=== PATIENT | female | born 1975 | race Caucasian/White ===

== ENCOUNTER 2018-01-19 15:44 | Emergency (ER) | payer OTHER, SELFPAY ==
[2018-01-19 15:56] VITALS: BP 109/72; PULSE 86; RESP 18; TEMP 36.8; O2SAT 98
[2018-01-19 16:15] LABS: Appearance Urine UA CLOUDY; Bilirubin Urine UA NEGATIVE (NEGATIVE); Color Urine UA YELLOW; Glucose Urine UA NEGATIVE (Normal); Ketones Urine UA NEGATIVE (NEGATIVE); Leukocyte Esterase Urine UA TRACE (NEGATIVE); Nitrite Urine UA POSITIVE (Negative); Occult Blood Urine UA 3+ (Negative); Protein Urine UA 2+ (Negative); Urobilinogen Urine UA 0.2 E.U./dL (0.2)
[2018-01-19 16:26] LABS: Bacteria Urine Many (>30); Culture Indicated Urine Specimen Cultured; RBC Urine 30-100/HPF (0-5/HPF); Squamous Epithelial Cell Urine 1-5 /HPF; WBC Urine 10-30/HPF (0-5/HPF)
--- NOTE | 2018-01-19 16:29 | ED.FEMALEGU ---
HPI - Female Genitourinary <Galina Faustin PA-C - Last Filed: 01/19/18 17:30> General Chief complaint: Urogenital-Female Stated complaint: STATES BLADDER INFECTION Time Seen by Provider: 01/19/18 16:20 Source: patient Mode of arrival: ambulatory Limitations: no limitations History of Present Illness HPI Narrative: This 42-year-old complains of onset of urinary burning, frequency, and urgency last night. She states this feels typical of her previous UTIs. She denies any new flank pain (has some chronic back pain that she thinks is related to work, unchanged today), denies nausea, vomiting, fever, or other new symptoms. She denies hematuria. Denies possibility of due to previous tubal ligation Related Data Home Medications Medication Instructions Recorded Confirmed [amberen] #0 03/16/17 ferrous gluconate 236 mg PO #0 03/16/17 Previous Rx's Medication Instructions Recorded fluticasone 1 spray INTRANASAL BID #16 gm 09/13/17 loratadine [Claritin Liqui-Gel] 10 mg PO QDAY #30 sgl 09/13/17 phenazopyridine [Pyridium] 200 mg PO Q8H PRN #6 tab 01/19/18 acyclovir 400 mg tablet 400 mg PO TID #15 tab 02/15/18 Allergies Allergy/AdvReac Type Severity Reaction Status Date / Time hydrocodone [HYDROCODONE] Allergy Severe Unverified 11/25/17 11:49 codeine [CODEINE] Allergy Intermediate RASH Unverified 11/25/17 11:49 Review of Systems <Galina Faustin PA-C - Last Filed: 01/19/18 17:30> Review of Systems All systems reviewed & are unremarkable except as noted in HPI and below Exam <Galina Faustin PA-C - Last Filed: 01/19/18 17:30> Narrative Exam Narrative: GENERAL APPEARANCE: Patient sitting comfortably, in no distress. LUNGS: Clear to auscultation bilaterally. HEART: Rate and rhythm regular without murmur, normal S1 and S2, no S3 or S4. ABDOMEN: Soft, NT, ND, +BS x 4 quadrants, no CVAT. Initial Vital Signs Initial Vital Signs: Vital Signs Temperature 98.3 F 01/19/18 15:56 Pulse Rate 86 01/19/18 15:56 Respiratory Rate 18 06/05/18 15:56 Blood Pressure 109/72 01/19/18 15:56 Pulse Oximetry 98 01/19/18 15:56 <Sandeep Glass MD - Last Filed: 03/05/18 08:14> Initial Vital Signs Initial Vital Signs: Vital Signs Temperature 98.3 F 01/19/18 15:56 Pulse Rate 86 01/19/18 15:56 Respiratory Rate 18 01/19/18 15:56 Blood Pressure 109/72 01/19/18 15:56 Pulse Oximetry 98 01/19/18 15:56 Course <Galina Faustin PA-C - Last Filed: 01/19/18 17:30> Orders Ordered: ED Orders 01/19/18 16:00 UA Complete [Urinalysis and Microscopic] Stat Urine Culture Stat Vital Signs - 8 hr 01/19/18 15:56 01/19/18 17:17 Temperature 98.3 F Pulse Rate 86 78 Respiratory Rate 18 Blood Pressure 109/72 Blood Pressure [Left Arm] 98/73 Pulse Oximetry 98 100 <Sandeep Glass MD - Last Filed: 03/05/18 08:14> Orders Ordered: ED Orders 01/19/18 16:00 UA Complete [Urinalysis and Microscopic] Stat Urine Culture Stat Vital Signs - 8 hr 01/19/18 15:56 01/19/18 17:17 Temperature 98.3 F Pulse Rate 86 78 Respiratory Rate 18 Blood Pressure 109/72 Blood Pressure [Left Arm] 98/73 Pulse Oximetry 98 100 MDM - Female Genitourinary <DOLLY Amaral Last Filed: 01/19/18 17:30> Lab Data Lab Results 01/19/18 Range/Units 16:00 Urine Color Yellow Urine Appearance Cloudy Urine pH 7.0 (4.5-8.0) Ur Specific [place] 1.020 (1.000-1.035) Urine Protein 2+ H (Negative) Urine Glucose (UA) Negative (Normal) g/dL Urine Ketones Negative (NEGATIVE) Urine Occult Blood 3+ H (Negative) Urine Nitrate Positive H (Negative) Urine Bilirubin Negative (NEGATIVE) Urine Urobilinogen 0.2 (0.2) E.U./dL Ur Leukocyte Esterase Trace H (NEGATIVE) Urine RBC 30-100/hpf H (0-5/HPF) Urine WBC 10-30/hpf H (0-5/HPF) Ur Squamous Epith Cells 1-5 /hpf Urine Bacteria Many (>30) H (None) Ur Culture Indicated? Specimen cultured Micro UA Comment Not Reportable <Sandeep Glass MD - Last Filed: 03/05/18 08:14> Lab Data Lab Results 01/19/18 Range/Units 16:00 Urine Color Yellow Urine Appearance Cloudy Urine pH 7.0 (4.5-8.0) Ur Specific [place] 1.020 (1.000-1.035) Urine Protein 2+ H (Negative) Urine Glucose (UA) Negative (Normal) g/dL Urine Ketones Negative (NEGATIVE) Urine Occult Blood 3+ H (Negative) Urine Nitrate Positive H (Negative) Urine Bilirubin Negative (NEGATIVE) Urine Urobilinogen 0.2 (0.2) E.U./dL Ur Leukocyte Esterase Trace H (NEGATIVE) Urine RBC 30-100/hpf H (0-5/HPF) Urine WBC 10-30/hpf H (0-5/HPF) Ur Squamous Epith Cells 1-5 /hpf Urine Bacteria Many (>30) H (None) Ur Culture Indicated? Specimen cultured Micro UA Comment Not Reportable Discharge Plan Departure Patient Disposition: Home, Self-Care Clinical Impression: UTI (urinary tract infection) Discharge Date/Time: 01/19/18 17:19 Interventions: ED Discharge Assessment Last Done: 01/19/18 17:14 Instructions: DI for Urinary Tract Infection (UTI) Activity Restrictions/Additional Instructions: Return if you have any new or acutely worsening symptoms as we talked about while cultures are pending (such as fever, nausea, vomiting, or new back pain). Follow up with your PCP if not better in a few days. Your prescriptions have been electronically sent to the pharmacy. Please picked them up and take the 1st doses right away Prescriptions: New phenazopyridine [Pyridium] 200 mg tablet 200 mg PO Q8H PRN (Reason: urinary pain) Qty: 6 RF: 0 No Action ferrous gluconate 236 MG tablet 236 mg PO Qty: 0 RF: 0 [amberen] Qty: 0 RF: 0 fluticasone 16 GM spray,suspension 1 spray Intranasal BID Qty: 16 RF: 0 loratadine [Claritin Liqui-Gel] 10 MG capsule 10 mg PO QDAY Qty: 30 RF: 0 acyclovir 400 mg tablet 400 mg PO TID Qty: 15 RF: 0 Referrals: Laura Solis DO [Primary Care Provider] - <Sandeep Glass MD - Last Filed: 03/05/18 08:14> Sign Out Provider Sign Out Attestation: The PA/[employer] functioned independently for the care of this pt, I was available, but not asked to participate in care. I am unable to determine appropriateness of management without personally examining the pt.
[2018-01-19 17:17] VITALS: BP 98/73; PULSE 78; O2SAT 100
== END 2018-01-19 17:19 | disposition home or self-care (01) ==
PROVIDERS: Emergency Medicine; Emergency Provider Internal Medicine; Family Provider Family Medicine; PCP Family Medicine
DX: N39.0 Urinary tract infection, site not specified (principal)
CPT/HCPCS: 81001; 87077; 87086; 87186; 99283

== ENCOUNTER → 2019-01-31 09:55 | Outpatient (CLI) | payer OTHER, SELFPAY ==
[2019-01-31 12:01] LABS: HIV 1 and 2 Antibody NEGATIVE (NEGATIVE); Hep C Virus Ab w/Reflex Quant NEGATIVE s/c (NEGATIVE)
[2019-02-02 13:24] LABS: HSV 1 IgM Screen Negative (Negative); HSV 2 IgM Screen Negative (Negative)
[2019-02-02 20:16] LABS: RPR Screen Nonreactive (Nonreactive)
== END ==
LOC: LAB 09:57
PROVIDERS: Family Provider Family Medicine; PCP Family Medicine
DX: Z71.1 Person with feared health complaint in whom no diagnosis is made (principal)
CPT/HCPCS: 36415; 86592; 86695; 86696; 86703; 86803

== ENCOUNTER 2019-12-09 22:03 | Emergency (ER) | payer OTHER, MEDICAID, SELFPAY ==
--- NOTE | 2019-12-09 22:25 | ED.GENADULT ---
HPI - General Adult General Chief complaint: Back Pain/Injury Stated complaint: lower back pain, burning sensation right leg Time Seen by Provider: 12/09/19 22:08 Source: patient Mode of arrival: Ambulatory Limitations: no limitations History of Present Illness HPI narrative: 44-year-old female here for evaluation of right-sided lower back pain with radiation down into her right leg. She states that it feels like a burning sensation down into the front of her right leg. States this has happened to her in the past. Was several weeks ago. She states she received a couple shots of pain medication an outside facility and was discharged home. Has not followed up since then. He states that the pain that brought her in today started within the past 24 hours. No fevers. No specific trauma. The same pain that she had several weeks ago. No urinary symptoms. No bowel symptoms. Not worse with palpation. Is worse with movement. Has not taken anything today for symptoms. Related Data Home Medications Medication Instructions Recorded Confirmed [amberen] #0 03/16/17 01/31/19 ferrous gluconate 236 mg PO #0 03/16/17 01/31/19 Previous Rx's Medication Instructions Recorded loratadine [Claritin Liqui-Gel] 10 mg PO QDAY #30 sgl 09/13/17 acyclovir 400 mg tablet 400 mg PO 5XD #25 tab 12/09/19 cyclobenzaprine 10 mg PO TID PRN #12 tab 12/09/19 meloxicam [Mobic] 7.5 mg PO DAILY #30 tab 12/09/19 prednisone 20 mg PO DAILY 3 Days #3 tab 12/09/19 tramadol [Ultram] 50 mg PO Q8H PRN #7 tab 12/09/19 Allergies Allergy/AdvReac Type Severity Reaction Status Date / Time banana Allergy Severe Swelling Verified 12/09/19 22:35 of Lip/Tongue/Throat grapefruit Allergy Severe Swelling Verified 12/09/19 22:35 of Lip/Tongue/Throat hydrocodone [HYDROCODONE] Allergy Severe Rash Unverified 12/09/19 22:35 shellfish derived Allergy Severe Swelling Verified 12/09/19 22:35 of Lip/Tongue/Throat codeine [CODEINE] Allergy Intermediate RASH Unverified 11/25/17 11:49 Review of Systems Constitutional Constitutional: Denies fever(s) and Denies headache(s) ENT Ears, Nose, Mouth, and Throat: Denies headache(s) Cardiovascular Cardiovascular: Denies chest pain and Denies dyspnea Respiratory Respiratory: Denies dyspnea Gastrointestinal Gastrointestinal: Denies abdominal pain Musculoskeletal Musculoskeletal: Reports back pain, Denies muscle weakness and Reports radiating pain into limb Integumentary/Breasts Skin/Breast: Denies lesions and Denies rash Neurologic Neurologic: Denies headache(s) Comments: Burning pain radiating down to her right leg Hematologic/Lymphatic Hematologic/Lymphatic: Denies easy bleeding and Denies easy bruising Patient History Medical History Herpes (Acute) Surgical History (Updated 01/31/19 @ 09:52 by Eloy Lind MD) Previous section (Acute) Status post tubal ligation (10/13/14) Family History (Updated 08/20/16 @ 00:00 by Conversion Provider) Father Age: 76 Heart disease Hypertension High cholesterol Mother Age: 69 Hypertension High cholesterol Social History Smoking Status: Never smoker Smoking Status: Current every day smoker alcohol intake frequency: a few times a week Substance Use Type: does not use Exam Initial Vital Signs Initial Vital Signs: Vital Signs Pulse Rate 98 H 12/09/19 22:26 Respiratory Rate 16 12/09/19 22:26 Blood Pressure 119/82 12/09/19 22:26 Pulse Oximetry 98 12/09/19 22:26 Const General: cooperative and healthy appearing Limitations: mental status not altered Resp Effort & Inspection: normal respiratory effort Back/Spine/Pelvis Thoracic/Lumbar Spine: paraspinal tenderness and No lumbar spinal tenderness Skin Lesions: no lesions Rashes: no rashes Neuro General: awake Cognition: normal cognition Gait: normal gait Motor: muscle tone normal throughout Sensory Exam: no sensory deficits noted Extrem General: normal to inspection, capillary refill normal and No edema Psych Appearance: grossly normal and well kempt Course Orders Ordered: Discontinued Medications Ketorolac Tromethamine (Toradol) 30 mg IM NOW ONE Stop: 12/09/19 22:42 Last Admin: 12/09/19 22:55 Dose: 30 mg Documented by: PHUONG Vital Signs Vital signs: Vital Signs - 8 hr 12/09/19 22:26 12/09/19 23:21 Pulse Rate 98 H 82 Respiratory Rate 16 14 Blood Pressure 119/82 119/82 Pulse Oximetry 98 100 Medical Decision Making MDM Narrative Medical decision making narrative: Feel her symptoms today consistent with musculoskeletal back pain. She does have radiculopathy down to her right leg. I do have low suspicion for acute surgical issues to include cauda equina. I feel we could hold on radiologic studies. Did discuss this with the patient that her symptoms would get better but it will probably take quite a bit of time. We did discuss use of anti-inflammatories. Informed her that she should contact her primary doctor about further workup to include physical therapy and or other radiologic studies if needed or referrals to see Orthopedics. Was given Toradol here in the ER. Prescriptions were electronically transmitted to the pharmacy of her choice. She was given return precautions. She expressed understanding and agreement. Discharge Plan Departure Patient Disposition: Home Clinical Impression: Low back pain radiating to right leg Discharge Date/Time: 12/09/19 23:23 Instructions: Low Back Pain (Alternative Therapy), DI for Back Pain With Sciatica, Exercise May Reduce Risk of Low Back Pain Activity Restrictions/Additional Instructions: Take the medications as directed. I do recommend that you stay as active as possible. Recommend you contact your primary provider for follow-up to discuss further workup. Return to the emergency department for any new symptoms. Your prescriptions were electronically transmitted to [facility] Prescriptions: New meloxicam [Mobic] 7.5 mg tablet 7.5 mg PO DAILY Qty: 30 RF: 0 prednisone 20 mg tablet 20 mg PO DAILY 3 Days Qty: 3 RF: 0 cyclobenzaprine 10 mg tablet 10 mg PO TID PRN (Reason: muscle spasm) Qty: 12 RF: 0 tramadol [Ultram] 50 mg tablet 50 mg PO Q8H PRN (Reason: pain) Qty: 7 RF: 0 No Action ferrous gluconate 236 MG tablet 236 mg PO Qty: 0 RF: 0 [amberen] Qty: 0 RF: 0 loratadine [Claritin Liqui-Gel] 10 MG capsule 10 mg PO QDAY Qty: 30 RF: 0 acyclovir 400 mg tablet 400 mg PO 5XD Qty: 25 RF: 2 Referrals: Laura Solis DO [Primary Care Provider] -
[2019-12-09 22:26] VITALS: BP 119/82; PULSE 98; RESP 16; O2SAT 98; BMI 25.2
[2019-12-09] MEDS: KETOROLAC 60 MG/2 ML VIAL 30 MG IM (22:55)
[2019-12-09 23:21] VITALS: BP 119/82; PULSE 82; RESP 14; O2SAT 100
== END 2019-12-09 23:23 | disposition home or self-care (01) ==
PROVIDERS: Emergency Provider Emergency Medicine; Family Provider Family Medicine; PCP Family Medicine
DX: M54.5 Low back pain (principal)
CPT/HCPCS: 96372; 99283; J1885

== ENCOUNTER → 2020-03-20 10:54 | Outpatient (CLI) | payer OTHER, MEDICAID, SELFPAY ==
[2020-03-20 12:55] LABS: Estradiol, Total 17.2 pg/mL
== END ==
PROVIDERS: Family Provider Family Medicine; PCP Family Medicine
DX: N91.1 Secondary amenorrhea (principal)
CPT/HCPCS: 36415; 82670; 83001

== ENCOUNTER 2020-05-18 23:54 | Emergency (ER) | payer OTHER, MEDICAID, SELFPAY ==
[2020-05-19 00:10] VITALS: BP 112/72; PULSE 77; RESP 16; TEMP 36.7; O2SAT 99; BMI 25.8
--- NOTE | 2020-05-19 00:10 | ED_ITS ---
HPI - Female Genitourinary General Chief complaint: Urogenital-Female Stated complaint: Vaginal bleeding, burning, smell, cramps Time Seen by Provider: 05/19/20 00:00 Source: patient Mode of arrival: Ambulatory Limitations: no limitations History of Present Illness HPI Narrative: 45F nonsmoker postmenopausal female with noncontributory medical history presents with a chief complaint of 2 days of increasing vaginal bleeding through a pad every few hours along with suprapubic cramping vaginal burning and foul-smelling discharge. She denies any fever chills. She is not dizzy nor weak or lightheaded. She has not been sexually active in over 2 months and denies any new partners. 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 She had been put on hormone replacement but developed some vaginal spotting in early March and was subsequently taken off. MD Complaint: dysuria, vaginal bleeding, vaginal discharge, pelvic pain and possible STD Onset (ago): day(s) Location: suprapubic Severity: moderate Quality: Aching and Burning Duration: constant Relieving factors: none Exacerbating factors: movement Urinary symptoms: Dysuria and Foul Smelling Urine Sexual activity: No Patient : No Related Data Home Medications Medication Instructions Recorded Confirmed [amberen] #0 03/16/17 03/20/20 ferrous gluconate 236 mg PO #0 03/16/17 03/20/20 Previous Rx's Medication Instructions Recorded loratadine [Claritin Liqui-Gel] 10 mg PO QDAY #30 sgl 09/13/17 cyclobenzaprine 10 mg PO TID PRN #12 tab 12/09/19 tramadol [Ultram] 50 mg PO Q8H PRN #7 tab 12/09/19 acyclovir 400 mg tablet 400 mg PO 5XD #25 tab 01/30/20 estradiol-norethindrone acet 1 1 tab PO DAILY #84 tab 03/22/20 mg-0.5 mg tablet ketorolac 10 mg PO Q6H PRN #14 tab 05/19/20 Allergies Allergy/AdvReac Type Severity Reaction Status Date / Time banana Allergy Severe Swelling Verified 03/20/20 10:27 of Lip/Tongue/Throat grapefruit Allergy Severe Swelling Verified 08/04/20 10:27 of Lip/Tongue/Throat hydrocodone [HYDROCODONE] Allergy Severe Rash Verified 03/20/20 10:27 shellfish derived Allergy Severe Swelling Verified 03/20/20 10:27 of Lip/Tongue/Throat codeine [CODEINE] Allergy Intermediate RASH Verified 03/20/20 10:27 Review of Systems Constitutional Constitutional: Denies chills, Denies fatigue, Denies fever(s), Denies frequent falls, Denies lethargy and Denies weakness Eyes Eyes: Denies change in vision, Denies eye discharge, Denies irritation and Denies loss of vision ENT Ears, Nose, Mouth, and Throat: Denies change in voice, Denies dizziness, Denies neck pain, Denies sore throat and Denies throat swelling Cardiovascular Cardiovascular: Denies chest pain, Denies irregular heart rhythm, Denies lightheadedness, Denies palpitations, Denies dyspnea, Denies dyspnea on exertion and Denies orthopnea Respiratory Respiratory: Denies cough, Denies dyspnea, Denies dyspnea on exertion and Denies wheezing Gastrointestinal Gastrointestinal: Denies abdominal pain, Denies change in bowel habits, Denies diarrhea, Denies nausea and Denies vomiting Genitourinary Genitourinary: Reports hematuria Genitourinary: Reports abnormal vaginal bleeding, Reports hematuria, Reports vaginal discharge and Reports vaginal odor Musculoskeletal Musculoskeletal: Denies neck pain and Denies numbness Integumentary/Breasts Skin/Breast: Denies pruritus, Denies erythema, Denies rash and Denies wounds Neurologic Neurologic: Denies behavioral changes, Denies confusion, Denies dizziness, Denies frequent falls, Denies loss of vision, Denies numbness and Denies weakness Psychiatric Psychiatric: Denies anxiety, Denies behavioral changes, Denies confusion, Denies depression, Denies homicidal ideation and Denies suicidal ideation Endocrine Endocrine: Denies fatigue, Denies flushing and Denies palpitations Hematologic/Lymphatic Hematologic/Lymphatic: Denies easy bruising Allergic/Immunologic Allergic/Immunologic: Denies urticaria, Denies throat swelling and Denies wheezing Patient History Medical History Herpes (Acute) Surgical History Previous section (Acute) Status post tubal ligation (10/13/14) Family History Father Age: 76 Heart disease Hypertension High cholesterol Mother Age: 69 Hypertension High cholesterol tobacco type: cigarettes and vaping alcohol intake frequency: a few times a week Substance Use Type: marijuana Exam Narrative Exam Narrative: GENERAL: [45] year old patient appears stated age. Well- nourished, well-developed patient, in mild distress. HEAD: Atraumatic. Normocephalic. EYES: Pupils equal round and reactive. Extraocular motions intact. No scleral icterus. No injection or drainage. ENT: Nose without bleeding, purulent drainage. Throat without erythema, tonsillar hypertrophy or exudate. Airway patent. NECK: Trachea midline. Non tender CARDIOVASCULAR: Regular rate and rhythm without murmurs, gallops, or rubs. RESPIRATORY: Clear to auscultation. Breath sounds equal bilaterally. No wheezes, rales, or rhonchi. GASTROINTESTINAL: Abdomen soft, non-tender, nondistended. PELVIC: minimal dark bleeding from closed cervix without tenderness. EXTREMITIES: No edema or joint tenderness. BACK: Nontender without deformity or crepitance. No flank tenderness. NEURO: AOx3. SKIN: No rash or erythema of visible areas Initial Vital Signs Initial Vital Signs: Vital Signs Temperature 98.0 F 05/19/20 00:10 Pulse Rate 77 05/19/20 00:10 Respiratory Rate 16 05/19/20 00:10 Blood Pressure 112/72 05/19/20 00:10 Pulse Oximetry 99 05/19/20 00:10 Course Orders Ordered: ED Orders 05/19/20 00:15 Urinalysis and Microscopic Stat 05/19/20 00:54 Chlamydia Gonorrhea PCR -URINE Stat 05/19/20 01:05 Genital Culture Stat Wet Prep Tric BV Geni Stat Discontinued Medications Ketorolac Tromethamine (Toradol) 60 mg IM NOW ONE Stop: 05/19/20 01:07 Last Admin: 05/19/20 01:11 Dose: 60 mg Documented by: CARIN Consultations Consultation #1: discussion with Dr. Solis. She is in agreement with plan for patient to follow up and received US in office. No current need for medroxyprogesterone. Vital Signs Vital signs: Vital Signs - 8 hr 05/19/20 00:10 Temperature 98.0 F Pulse Rate 77 Respiratory Rate 16 Blood Pressure 112/72 Pulse Oximetry 99 MDM - Female Genitourinary Lab Data Labs: Lab Results 05/19/20 Range/Units 00:15 Urine Color Red Urine Appearance Sl cloudy Urine pH 5.5 (4.5-8.0) Ur Specific [place] 1.025 (1.000-1.035) Urine Protein 2+ H (Negative) Urine Glucose (UA) Negative (Negative) g/dL Urine Ketones Trace H (NEGATIVE) Urine Occult Blood 3+ H (Negative) Urine Nitrate Negative (Negative) Urine Bilirubin Negative (NEGATIVE) Urine Urobilinogen 0.2 (0.2) E.U./dL Ur Leukocyte Esterase Trace H (NEGATIVE) Urine RBC 30-100/hpf H (0-5/HPF) Urine WBC 1-5/hpf (0-5/HPF) Ur Squamous Epith Cells 5-10 /hpf H (0-5/HPF) Calcium Oxalate Crystal Occasional H Urine Bacteria Moderate (10-30) H (None) Urine Mucus 2+ H (Negative) Ur Culture Indicated? Cult not indicated Point of Care Testing Test Results Negative Discharge Plan Departure Patient Disposition: Home Clinical Impression: Abnormal vaginal bleeding Discharge Date/Time: 05/19/20 01:25 Instructions: DI for Vaginal Bleeding Activity Restrictions/Additional Instructions: *You have been diagnosed with [abnormal vaginal bleeding and pelvic cramping] *What to do: *Take medications as directed: Electronically transmitted to [facility] *Follow up with your primary care provider in 2-3 days, call for an appointment. Let them know you were seen in the Emergency Department and that we ask that you be seen in follow up *Return to ER if you should have any new, worsening or concerning symptoms, such as [fever greater than 101, increased pain, increased bleeding, saturating greater than 1 pad per hour for multiple hours] Prescriptions: New ketorolac 10 mg tablet 10 mg PO Q6H PRN (Reason: pain) Qty: 14 RF: 0 No Action ferrous gluconate 236 MG tablet 236 mg PO Qty: 0 RF: 0 [amberen] Qty: 0 RF: 0 loratadine [Claritin Liqui-Gel] 10 MG capsule 10 mg PO QDAY Qty: 30 RF: 0 acyclovir 400 mg tablet 400 mg PO 5XD Qty: 25 RF: 2 estradiol-norethindrone acet 1-0.5 mg tablet 1 tab PO DAILY Qty: 84 RF: 3 cyclobenzaprine 10 mg tablet 10 mg PO TID PRN (Reason: muscle spasm) Qty: 12 RF: 0 tramadol [Ultram] 50 mg tablet 50 mg PO Q8H PRN (Reason: pain) Qty: 7 RF: 0 Referrals: Eloy Lind MD [Physician] - Laura Solis DO [Family Provider] -
[2020-05-19 00:27] LABS: Appearance Urine UA SL CLOUDY; Bilirubin Urine UA NEGATIVE (NEGATIVE); Color Urine UA RED; Glucose Urine UA NEGATIVE (Negative); Ketones Urine UA TRACE (NEGATIVE); Leukocyte Esterase Urine UA TRACE (NEGATIVE); Nitrite Urine UA NEGATIVE (Negative); Occult Blood Urine UA 3+ (Negative); Protein Urine UA 2+ (Negative); Specific Gravity Urine UA 1.025 (1.000-1.035); Urobilinogen Urine UA 0.2 E.U./dL (0.2)
[2020-05-19 00:32] LABS: pH Urine UA 5.5 (4.5-8.0)
[2020-05-19 00:33] LABS: RBC Urine 30-100/HPF (0-5/HPF)
[2020-05-19 00:34] LABS: WBC Urine 1-5/HPF (0-5/HPF)
[2020-05-19 00:35] LABS: Bacteria Urine Moderate (10-30); Calcium Oxalate Crystals Urine Occasional; Mucus Urine 2+ (Negative)
[2020-05-19 00:36] LABS: Squamous Epithelial Cell Urine 5-10 /HPF (0-5/HPF)
[2020-05-19 00:37] LABS: Culture Indicated Urine Cult Not Indicated
--- NOTE | 2020-05-19 01:07 | PC.NURSE ---
Chaperoned Dr. Turpin for pelvic exam.
[2020-05-19] MEDS: KETOROLAC 60 MG/2 ML VIAL IM (01:11)
== END 2020-05-19 01:25 | disposition home or self-care (01) ==
PROVIDERS: Emergency Provider Emergency Medicine; Family Provider Family Medicine
DX: N93.9 Abnormal uterine and vaginal bleeding, unspecified (principal); R10.2 Pelvic and perineal pain; R30.0 Dysuria; R31.9 Hematuria, unspecified
CPT/HCPCS: 81001; 81025; 87070; 87077; 87205; 87210; 87252; 87491; 87591; 96372; 99283; 99284; J1885

== ENCOUNTER → 2021-04-23 12:38 | Outpatient (CLI) | payer OTHER, MEDICAID, SELFPAY ==
--- NOTE | 2021-04-23 12:40 | DI.US.S_ITS ---
PROCEDURE: US PELVIC COMPLETE INDICATIONS: PMB TECHNIQUE: Real-time scanning was performed of the pelvic organs, with image documentation. Additional endovaginal scanning was necessary due to incomplete visualization of the adnexal and endometrial structures by transabdominal scanning. COMPARISON: None. FINDINGS: Uterus: Uterus is normal in size at 8.2 x 3.4 x 4.3 cm. The endometrium measures 1.5 mm in combined thickness. Small echogenic foci are noted adjacent to the endometrium. Ovaries: Right ovary measures 2.1 x 0.9 x 1.4 cm. Left ovary measures 2.2 x 0.8 x 1.2 cm. Other: No pathologic free abdominal or pelvic fluid. IMPRESSION: 1. Endometrial thickness is within normal limits. If concern persists for postmenopausal bleeding, endometrial sampling is recommended. 2. Echogenic foci are noted adjacent to the endometrium possibly manufacturer representative calcification. Dictated by: Adele Guardado M.D. on 04/23/2021 at 17:57 Approved by: Adele Guardado M.D. on 04/23/2021 at 17:58
== END ==
PROVIDERS: Family Provider Family Medicine; Referring Provider Obstetrics & Gynecology; Visit Provider Obstetrics & Gynecology
DX: N95.0 Postmenopausal bleeding (principal); R93.89 Abnormal findings on diagnostic imaging of other specified body structures
CPT/HCPCS: 76830; 76856

== ENCOUNTER → 2022-02-24 11:33 | Outpatient (CLI) | payer OTHER, MEDICAID, SELFPAY ==
[2022-02-25 04:54] LABS: RPR Screen Non Reactive (Non Reactive)
[2022-02-25 09:09] LABS: Candida species Negative (Negative); Gardnerella vaginalis Negative (Negative); Trichomoas vaginalis Negative (Negative)
[2022-02-25 17:05] LABS: Hepatitis B Surface Antigen NEGATIVE s/c (NEGATIVE)
[2022-02-25 17:19] LABS: HIV 1 & 2 Ab/Ag 4th Gen Combo NEGATIVE (NEGATIVE); Hep C Virus Ab w/Reflex Quant NEGATIVE s/c (NEGATIVE)
[2022-02-26 07:39] LABS: Chlamydia trachomatis Negative (Negative); Mycoplasma genitalium Negative (Negative); Neisseria gonorrhoeae Negative (Negative)
== END ==
PROVIDERS: Family Provider Family Medicine; Referring Provider Obstetrics & Gynecology; Visit Provider Obstetrics & Gynecology
DX: Z01.419 Encounter for gynecological examination (general) (routine) without abnormal findings (principal); N89.8 Other specified noninflammatory disorders of vagina
CPT/HCPCS: 36415; 86592; 86803; 87340; 87389; 87480; 87491; 87510; 87563; 87591; 87660

== ENCOUNTER 2024-08-17 18:46 | Emergency (ER) | payer OTHER, MEDICAID, SELFPAY ==
[2024-08-17 18:53] VITALS: BP 103/58; PULSE 72; RESP 18; TEMP 37.1; O2SAT 98; BMI 23.2
--- NOTE | 2024-08-17 18:56 | DI.RAD.S_ITS ---
PROCEDURE: XR HAND LT MIN 3V INDICATIONS: laceration and swelling TECHNIQUE: 3 views of the hand(s) acquired. COMPARISON: None. FINDINGS: Bones: There is a mildly comminuted fracture involving the 5th metacarpal shaft with foreshortening of the distal fracture fragment. Overlying soft tissue swelling and injury. Carpal bones are normally aligned. No suspicious bony lesions. Soft tissues: No suspicious soft tissue calcifications. IMPRESSION: Mildly comminuted fracture of the 5th metacarpal shaft with foreshortening of the distal fracture fragment. Overlying soft tissue injury and swelling. Recommend clinical correlation for open fracture. Dictated by: Peng Heredia M.D. on 08/17/2024 at 19:21 Approved by: Peng Heredia M.D. on 08/17/2024 at 19:22
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
[2024-08-17] MEDS: ONDANSETRON 4 MG/2 ML INJ IV (19:38)
[2024-08-17] MEDS: MORPHINE 4 MG/ML INJ IV (19:38)
[2024-08-17] MEDS: CEFAZOLIN 2 GM/100 ML PREMIX 100 ML IV (19:47)
[2024-08-17] MEDS: cephALEXin 250 MG CAP PREPACK 1 BOTTLE MISC (20:22)
[2024-08-17] MEDS: HYDROCODONE/ACET 5/325 PREPACK 1 BOTTLE MISC (20:23)
[2024-08-17] MEDS: BACITRACIN OINT 0.9 GM PCKT 1 APPLIC TOP (20:32)
[2024-08-17 20:33] VITALS: BP 109/62; PULSE 60; RESP 20; O2SAT 99
== END 2024-08-17 20:36 | disposition home or self-care (01) ==
PROVIDERS: Emergency Provider Emergency Medicine; Family Provider Family Medicine; PCP Family Medicine
DX: S62.397B Other fracture of fifth metacarpal bone, left hand, initial encounter for open fracture (principal); X99.0XXA Assault by sharp glass, initial encounter
CPT/HCPCS: 29125; 36415; 73130; 96365; 96375; 99284; J0690; J2270; J2405

== ENCOUNTER 2024-08-22 18:53 | Emergency (ER) | payer OTHER, MEDICAID, SELFPAY ==
[2024-08-22 19:02] VITALS: BP 168/72; PULSE 89; RESP 16; TEMP 36.7; O2SAT 98
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
== END 2024-08-22 23:08 | disposition left against medical advice (07) ==
PROVIDERS: Emergency Provider Emergency Medicine; Family Provider Family Medicine; PCP Family Medicine
DX: M79.89 Other specified soft tissue disorders (principal)
CPT/HCPCS: 99281